=== PATIENT | female | born 1970 | race Caucasian/White ===

== ENCOUNTER 2018-07-30 17:29 | Outpatient (REF) | payer MEDICAID, SELFPAY ==
[2018-07-30 19:18] LABS: Bilirubin Negative (Negative); Blood Negative (Negative); Clarity Clear; Glucose Negative (Negative); Ketones Negative (Negative); Leukocyte Esterase Negative (Negative); Nitrite Negative (Negative); Specific Gravity <= 1.005 (1.005-1.025); Urobilinogen 0.2 EU/dL (Up TO 0.2)
== END 2018-07-30 17:49 ==
LOC: LBN 17:29
PROVIDERS: PCP Family Medicine; Visit Provider Obstetrics & Gynecology
DX: R30.0 Dysuria (principal)
CPT/HCPCS: 81003; 87086

== ENCOUNTER 2018-07-31 09:09 | Outpatient (CLI) | payer MEDICAID, SELFPAY ==
--- NOTE | 2018-07-31 14:45 | DI.US_ITS ---
SYMPTOMS/DIAGNOSIS: PELVIC PAIN, LEFT GREATER THAN RIGHT, R10.2 PELVIC ULTRASOUND: Comparison is made with November,. Transabdominal and transvaginal exams were performed. The uterus measures 5.8 x 2.8 x 3.7 cm. The endometrial stripe measures 2 mm in thickness. The ovaries are normal in size and appearance. There is no evidence of cyst, mass or torsion. There is no free fluid or hydronephrosis. IMPRESSION: Negative pelvic ultrasound.
[2018-07-31 14:53] LABS: Absolute Basophil Count 0.03 k/cumm (0.0-0.2); Absolute Eosinophil Count 0.16 k/cumm (0.0-0.7); Absolute Lymphocyte Count 2.07 k/cumm (1.2-3.4); Absolute Monocyte Count 0.68 k/cumm (0.11-0.7); Absolute Neutrophil Count 2.87 k/cumm (1.2-6.7); Basophils % 0.5; Eosinophils % 2.8; HGB 14.3 g/dL (12.0-15.5); Lymphocytes % 35.6; Mean Corp. HGB Concentration 32.5 g/dL (32.0-36.0); Mean Corpuscular Hemoglobin 31.1 pg (27.0-33.0); Mean Corpuscular Volume 95.7 fL (80-95); Mean Platelet Volume 10.5 fL (8.0-11.0); Monocytes % 11.7; Neutrophils % 49.4; Platelet Count 179 x1000/uL (130-400); RBC Distribution Width 12.3 % (11.7-14.6); White Blood Cell Count 5.81 k/cumm (4.4-10.8)
[2018-07-31 16:25] LABS: ALT 22 U/L (12-78); AST 26 U/L (15-37); Albumin 3.8 g/dL (3.4-5.0); Alkaline Phosphatase 42 U/L (46-116); Amylase 73 U/L (25-115); Bilirubin, Direct 0.21 mg/dL (0.00-0.20); Bilirubin, Total 0.9 mg/dL (0.2-1.0); Lipase 424 U/L (73-393); Total Protein 7.1 g/dL (6.4-8.2)
== END 2018-07-31 09:29 ==
PROVIDERS: PCP Family Medicine; Visit Provider Obstetrics & Gynecology
DX: R10.2 Pelvic and perineal pain (principal); R10.9 Unspecified abdominal pain
CPT/HCPCS: 36415; 80076; 83690; 76830; 76856; 82150; 85025

== ENCOUNTER 2020-08-09 10:52 | Outpatient (CLI) | payer MEDICAID, SELFPAY ==
--- NOTE | 2020-08-09 08:57 | DI.RAD_ITS ---
EXAM: XR KNEE LT 3V AP,LAT,PUJA CLINICAL HISTORY: left knee pain. TECHNIQUE: 2D digital imaging was performed. COMPARISON: CR XR KNEE RT 3V AP,LAT,PUJA from 08/09/2020 FINDINGS: There is no evidence of fracture nor obvious left knee joint effusion. However, there is chondrocalc inosis in both the mediolateral compartments as well as small marginal osteophytes in the lateral com partment. In addition, there is a corticated lung to truly orientated density off the medial aspect of the joint which measures 12 millimeters by 5 millimeters. This may possibly related to the medial collateral ligament or posterior to this level, seen on the lateral view. There is no narrowing of the medial compartment nor osteophytes in the medial compartment. IMPRESSION: Chondrocalcinosis. Some degenerative changes described above. Medially located para-articular calci fication, as described above. DATA REPOSITORY: RADIATION DOSE DELIVERED:
--- NOTE | 2020-08-09 08:57 | DI.RAD_ITS ---
EXAM: XR KNEE RT 3V AP,LAT,PUJA CLINICAL HISTORY: right knee pain. TECHNIQUE: 2D digital imaging was performed. COMPARISON: No exams were available for comparison FINDINGS: There is no evidence of fracture but there is a joint effusion in the suprapatellar bursa evident. There is chondrocalcinosis in both the mediolateral compartments evident as well as in the patellofem oral compartment in this 49-year-old patient. There is no joint space narrowing nor prominent osteop hytes. No osseous lesions. IMPRESSION: Mild degenerative changes. Chondrocalcinosis. Joint effusion DATA REPOSITORY: RADIATION DOSE DELIVERED:
== END 2020-08-09 10:53 | disposition home or self-care (01) ==
LOC: DIORS 10:53
PROVIDERS: PCP Family Medicine; Referring Provider Family Medicine; Visit Provider Physician Assistant
DX: M11.262 Other chondrocalcinosis, left knee (principal); M11.261 Other chondrocalcinosis, right knee; M17.0 Bilateral primary osteoarthritis of knee; M25.461 Effusion, right knee
CPT/HCPCS: 73562

== ENCOUNTER 2020-09-24 03:05 | Outpatient (CLI) | payer MEDICAID, SELFPAY ==
--- NOTE | 2020-09-24 06:45 | DI.MRI_ITS ---
EXAM: MR LOWER JOINT LT WO CLINICAL HISTORY: PAIN, INSTABILITY,INTERNAL DERANGEMENT,CHONDROCALCINOSIS,M23.92,M11.262 TECHNIQUE: Multiplanar multisequence MRI was performed.. COMPARISON: CR XR KNEE LT 3V AP,LAT,PUJA from 08/09/2020 FINDINGS: MR examination of the knee was performed according to the usual protocol. There is a small significant knee joint effusion. No significant bony signal abnormality seen. Note is made of a small ossicle associated with the medial collateral ligament as seen on plain films . Medial tibiofemoral joint: The articular cartilage of the femur and tibia appears well maintained. T he meniscus and attachments appear intact. The medial collateral ligament appears intact. No patient educator omedial corner injury seen. Lateral tibiofemoral joint: The articular cartilage of the femur and tibia appears well maintained wi th minimal signal abnormality noted consistent with chondrocalcinosis.. The lateral meniscus shows m inimal contour irregularity of its free edge in the midbody region suggesting some fraying. No gross displaced lateral meniscal tear seen. The lateral collateral ligament complex and posterolateral co rner structures appear intact. Patellofemoral joint and extensor mechanism: The articular cartilage of the patellofemoral joint show s central and inferior deformity and signal abnormality consistent with grade 2 chondromalacia period . The superior and inferior patellar fat pads appear normal with no signal abnormality. The quadriceps tendon and patellar tendon appear intact with no evidence of a tear or significant elle ma. The medial and lateral retinacula appear intact. Cruciate ligaments: Cruciate ligaments and attachments appear normal with no evidence of a tear. Tibiofibular joint: No specific abnormality involving the tibiofibular joint. IMPRESSION: Degenerative articular cartilage changes of the patella centrally and inferiorly. Fraying of free edge of lateral meniscal body. No gross displaced meniscal tear. DATA REPOSITORY:
== END 2020-09-24 03:25 ==
PROVIDERS: PCP Family Medicine; Visit Provider Student in an Organized Health Care Education/Training Program
DX: M23.92 Unspecified internal derangement of left knee (principal); M11.262 Other chondrocalcinosis, left knee
CPT/HCPCS: 73721

== ENCOUNTER 2020-10-18 03:27 | Outpatient (CLI) | payer MEDICAID, SELFPAY ==
[2020-10-18 11:40] LABS: Source Nasal/Nares
[2020-10-18 18:17] LABS: COVID-19 PCR Negative (Negative)
== END 2020-10-18 03:28 | disposition home or self-care (01) ==
LOC: LBO 03:27
PROVIDERS: PCP Family Medicine; Visit Provider Student in an Organized Health Care Education/Training Program
DX: Z20.822 Contact with and (suspected) exposure to COVID-19 (principal)
CPT/HCPCS: 87635

== ENCOUNTER 2020-10-20 10:43 | Day surgery (SDC) | payer MEDICAID, SELFPAY ==
--- NOTE | 2020-10-18 15:45 | NUR.NOTE ---
Pt. stated she is taking Vitamin K, and has been for a long time due to abnormal PT/INR in past. This was not documented in patients chart. Informed Dr. Hand of this via Teams, and awaiting further instruction on pre-operative use of vitamin K prior to surgery.Nursing Note:
[2020-10-20] VITALS (9 sets, daily range): BP systolic 86–124; BP diastolic 56–72; PULSE 51–72; RESP 10–21; TEMP 36.4–36.6; O2SAT 95–100; BMI 22.6
[2020-10-20] MEDS: Celecoxib 200 MG CAP 400 MG PO (11:24)
[2020-10-20] MEDS: Acetaminophen 500 MG TAB 1000 MG PO (11:24)
[2020-10-20] MEDS: Lactated Ringers 1,000 ML 80 ML IV (11:24)
--- NOTE | 2020-10-20 11:36 | W.ANESPRE ---
General Info Date of Service Date Performed: 10/20/20 Height: 5 ft 8 in Weight: 67.6 kg Body Mass Index (BMI): 22.6 Surgical Procedure: Operation Date: 10/20/20 15:25 Proposed Procedures Side Surgeon p Knee Arthroscopy Left Scot Hand MD Meds Allergies and Home Medications Allergies Allergy/AdvReac Type Severity Reaction Status Date / Time Latex, Natural Rubber Allergy Intermediate WHEEZING, Unverified 10/20/20 11:03 RASH Home Medication Medication Instructions Recorded vit B complex 100 combo no.2 100 1 tab PO DAILY tab 07/30/18 mg tablet,extended release multivitamin 1 tab PO DAILY 08/16/18 Ca cmb no.1-vit [id number] 1 tab PO DAILY 10/18/20 Tumeric 500 mg PO DAILY 10/18/20 omega-3 fatty acids-vitamin E 1,000 cap PO DAILY 10/18/20 vitamin K2 45 mcg PO DAILY 10/18/20 acetaminophen 1,000 mg PO Q8H PRN PRN #90 cap 10/20/20 hydrocodone-acetaminophen 1 tab PO Q6H PRN #6 tab 10/20/20 ibuprofen 600 mg PO TID PRN #30 tab 10/20/20 magnesium 30 mg PO BID 10/20/20 Current Visit Medications: Current Medications Generic Name Dose Route Start Last Admin Trade Name Efrainq PRN Reason Stop Dose Admin Acetaminophen 1,000 mg 10/20/20 06:00 10/20/20 11:24 Acetaminophen 500 Mg Tab PO 10/20/20 16:00 1,000 mg PREOP ESTELA Administration Celecoxib 400 mg 10/20/20 06:00 10/20/20 11:24 Celecoxib 200 Mg Cap PO 10/20/20 16:00 400 mg PREOP ESTELA Administration Ringer's Solution 1,000 mls @ 80 mls/hr 10/20/20 06:00 10/20/20 11:24 IV 11/18/20 23:59 80 mls/hr INFUSION ESTELA Administration Cefazolin Sodium/Dextrose 2 gm in 50 mls @ 100 mls/hr 10/20/20 06:00 Ancef Duplex IVPB 11/18/20 23:59 PREOP ESTELA IV Miscellaneous Supplies 1 each 10/20/20 06:00 Iv Access IV 11/18/20 23:59 DIRECTED ESTELA Sodium Chloride 0 ml 10/20/20 06:00 Normal Saline Flush 10 Ml Syr IV 11/18/20 23:59 PRN PRN Sodium Chloride 0 ml 10/20/20 06:00 Normal Saline 10 Ml Vial IJ 11/18/20 23:59 DIRECTED PRN Sterile Water 0 ml 10/20/20 06:00 Water,Injection,Sterile 10 Ml Vial IJ 11/18/20 23:59 DIRECTED PRN PFSH Active Problems Active Problems: Problem Status Onset Code Tear of lateral meniscus of left knee S83.282A Chondrocalcinosis of right knee M11.261 Internal derangement of left knee M23.92 Chondrocalcinosis of left knee M11.262 Total urinary incontinence 12/10/13 N39.498 Encounter for routine gynecological examination 04/19/15 Z01.419 Medical History Medical History abnormal Pap MAYRA 11 with cryo therapy x 2 Paps NL since Asthma Patient states resolved Chlamydia trachomatis infection (Unknown) Chondrocalcinosis of left knee Depo-Medrol injection: 08/09/2020 Chondrocalcinosis of right knee Internal derangement of left knee Depo-Medrol injection: 08/09/2020 Irregular periods (12/10/13) Thyroid condition ? Total urinary incontinence (12/10/13) Surgical History Surgical History Cervical Procedure cryo x 2 for MAYRA 1-11 Reduction mammoplasty ? 1999 bilateral reductions Tobacco Smoking/Tobacco Use Status: Former Tobacco Use Alcohol Alcohol Intake: current Alcohol intake frequency: a few times a month Substance Use Substance use: Never Substance use type: does not use Prental History History 3 Para 3 Hx # Term Pregnancies 3 Multiple births Hx # Pregnancies Ectopic pregnancies AB induced Hx Number of Living Children AB spontaneous Vital Signs and Lab Results Vital Signs Most Recent Vital Signs in EMR: Most Recent Vital Signs Temp Pulse Resp BP Pulse Ox 36.5 C 72 17 124/72 96 10/20/20 10:57 10/20/20 10:57 10/20/20 10:57 10/20/20 10:57 10/20/20 10:57 Lab Results Blood Type / Crossmatch: No Data to Display Complete Blood Count: White Blood Count 5.81 k/cumm (4.4-10.8) 07/31/18 14:45 07/31/18 Red Blood Count 4.60 m/cumm (4.00-5.20) 07/31/18 14:45 07/31/18 Hemoglobin 14.3 g/dL (12.0-15.5) 07/31/18 14:45 07/31/18 Hematocrit 44.0 % (36.0-46.0) 07/31/18 14:45 07/31/18 Platelet Count 179 x1000/uL (130-400) 07/31/18 14:45 07/31/18 Complete Metabolic Panel: Sodium Level 141 mmol/L (136-145) 08/07/11 11:30 08/07/11 Potassium Level 3.7 mmol/L (3.5-5.1) 08/07/11 11:30 08/07/11 Chloride Level 106 mmol/L (98-107) 08/07/11 11:30 08/07/11 Carbon Dioxide Level 28.7 mmol/L (21.0-32.0) 08/07/11 11:30 08/07/11 Blood Urea Nitrogen 14 mg/dL (7-18) 08/07/11 11:30 08/07/11 Creatinine 0.7 mG/dL (0.6-1.0) 08/07/11 11:30 08/07/11 Magnesium Level 1.9 mg/dL (1.8-2.4) 08/07/11 11:30 08/07/11 Calcium Level 8.4 mg/dL (8.5-10.1) L 08/07/11 11:30 08/07/11 Albumin 3.8 g/dL (3.4-5.0) 07/31/18 14:45 07/31/18 Glucose Level 80 mg/dL (70-100) 01/27/13 07:20 01/27/13 C-Reactive Protein 0.07 mg/dL (0.0-0.3) 08/07/11 11:30 08/07/11 Liver Function Panel: Alanine Aminotransferase (ALT/SGPT) 22 U/L (12-78) 07/31/18 14:45 07/31/18 Aspartate Amino Transf (AST/SGOT) 26 U/L (15-37) 07/31/18 14:45 07/31/18 Coagulation Panel: INR International Normalized Ratio 1.1 (1.0-3.5) 08/07/11 11:30 08/07/11 Prothrombin Time 11.0 sec (9.3-11.1) 08/07/11 11:30 08/07/11 Activated Partial Thromboplast Time 26.3 sec (21.7-31.4) 08/07/11 11:30 08/07/11 Cardiac Panel: Troponin I < 0.04 ng/mL (0.00-0.06) 08/07/11 11:30 08/07/11 Arterial Blood Gas: No Data to Display Venous Blood Gas: No Data to Display Pancreas Panel: Amylase Level 73 U/L (25-115) 07/31/18 14:45 07/31/18 Lipase 424 U/L (73-393) H 07/31/18 14:45 07/31/18 Thyroid Panel: Thyroid Stimulating Hormone (TSH) 2.58 uIU/mL (0.36-3.74) 01/27/14 07:17 01/27/14 Infectious Disease: Coronavirus (COVID-19)(PCR) Negative (Negative) 10/18/20 11:25 10/18/20 Coronavirus 2019 Source Nasal/nares 10/18/20 11:25 10/18/20 Hepatitis B Surface Antigen Nonreactive 01/27/14 07:17 01/27/14 Hepatitis C Antibody Negative (Negative) 01/27/14 07:17 01/27/14 Syphilis Serology See comments (NR) 01/27/14 07:17 01/27/14 Neisseria gonorrhoeae DNA Probe See comments (()) 12/10/13 10:30 12/10/13 Blood Cultures: No Data to Display Toxicology Panel: No Data to Display Panel: No Data to Display Anesthesia Assessment and Plan Anesthesia History Personal History: No History of Anesthesia Complications Family History: No Family History of Anesthesia Complications Exercise Tolerance Exercise Tolerance: Metabolic Equivalents>4 Cardiac & Pulmonary Exam Cardiac Exam: Normal S1/S2 Heart Sounds Pulmonary Exam: Clear Bilateral Breath Sounds Airway Exam Known Difficult Airway: No ASA Classification ASA Score: ASA 2 NPO Status NPO Status: NPO Clears >2 hours, Solids >8 hours Status Status: Not Relevant due to Medical History Anesthesia Plan Anesthesia Technique: General Anesthesia Airway Planned: LMA Monitors Used: Standard Monitors
--- NOTE | 2020-10-20 11:55 | W.PM.DSUDISC ---
Discharge Plan Disposition Patient Disposition: HOME Condition: Good Discharge Details Reason For Visit: Left knee arthroscopy Attending Provider: Scot Hand Primary Care Provider: Mateus Herrera Home Meds and New Rx's Prescriptions: New acetaminophen 500 mg capsule 1,000 mg PO Q8H PRN PRNQty: 90 RF: 0 hydrocodone-acetaminophen 5-325 mg tablet 1 tab PO Q6H PRN (Reason: pain) Qty: 6 RF: 0 ibuprofen 600 mg tablet 600 mg PO TID PRN (Reason: pain) Qty: 30 RF: 0 Continued Balanced B-100 Complex 100 mg tablet extended release 1 tab PO DAILY RF: 0 multivitamin [Daily Multi-Vitamin] tablet 1 tab PO DAILY RF: 0 omega-3 fatty acids-vitamin E 1,000 mg Capsule 1,000 cap PO DAILY RF: 0 Ca cmb no.1-vit [id number]-B12 120-1,000-10 mg-unit-mg Tablet 1 tab PO DAILY RF: 0 vitamin K2 45 mcg Capsule 45 mcg PO DAILY RF: 0 Tumeric 500 mg PO DAILY RF: 0 magnesium 500 mg Tablet 30 mg PO BID RF: 0 Discontinued ibuprofen 200 MG tablet 1 tab PO PRN PRNRF: 0 Discharge Instructions Stand Alone Forms: [facility]throsc[facility] Referrals: Scot Hand MD [ [facility] STAFF PHYSICIAN] - Equipment/Supplies: Partial Weight Bearing Crutches Activity:: Activity as Tolerated Remove Dressings/Wound Care:: 72 hours Shower/Bathe:: 72 hours Diet:: As Tolerated Discharge Orders Discharge Orders: Discharge Order (Routine); Ordered 10/20/20 Ordered By: Addison Wiley DS: Diagnosis Discharge Diagnosis (1) Tear of lateral meniscus of left knee: Status: Acute
--- NOTE | 2020-10-20 13:38 | W.ANESPRE ---
General Info Date of Service Date Performed: 10/20/20 Height: 5 ft 8 in Weight: 67.6 kg Body Mass Index (BMI): 22.6 Surgical Procedure: Operation Date: 10/20/20 15:25 Proposed Procedures Side Surgeon p Knee Arthroscopy Left Scot Hand MD Meds Allergies and Home Medications Allergies Allergy/AdvReac Type Severity Reaction Status Date / Time Latex, Natural Rubber Allergy Intermediate WHEEZING, Unverified 10/20/20 11:03 RASH Home Medication Medication Instructions Recorded vit B complex 100 combo no.2 100 1 tab PO DAILY tab 07/30/18 mg tablet,extended release multivitamin 1 tab PO DAILY 08/16/18 Ca cmb no.1-vit [id number]-B12 1 tab PO DAILY 10/18/20 Tumeric 500 mg PO DAILY 10/18/20 omega-3 fatty acids-vitamin E 1,000 cap PO DAILY 10/18/20 vitamin K2 45 mcg PO DAILY 10/18/20 acetaminophen 1,000 mg PO Q8H PRN PRN #90 cap 10/20/20 hydrocodone-acetaminophen 1 tab PO Q6H PRN #6 tab 10/20/20 ibuprofen 600 mg PO TID PRN #30 tab 10/20/20 magnesium 30 mg PO BID 10/20/20 Current Visit Medications: Current Medications Generic Name Dose Route Start Last Admin Trade Name Freq PRN Reason Stop Dose Admin Acetaminophen 1,000 mg 10/20/20 06:00 10/20/20 11:24 Acetaminophen 500 Mg Tab PO 10/20/20 16:00 1,000 mg PREOP ESTELA Administration Acetaminophen 650 mg 10/20/20 11:53 Acetaminophen 325 Mg Tab PO Q4H PRN PRN Hydrocodone Bitart/Acetaminophen 0 tab 10/20/20 12:17 Hydrocodone 5/Acetaminophen 325 Tab PO Q3H PRN PRN Pain Celecoxib 400 mg 10/20/20 06:00 10/20/20 11:24 Celecoxib 200 Mg Cap PO 10/20/20 16:00 400 mg PREOP ESTELA Administration Ringer's Solution 1,000 mls @ 80 mls/hr 10/20/20 06:00 10/20/20 11:24 IV 11/18/20 23:59 80 mls/hr INFUSION ESTELA Administration Cefazolin Sodium/Dextrose 2 gm in 50 mls @ 100 mls/hr 10/20/20 06:00 Ancef Duplex IVPB 11/18/20 23:59 PREOP ESTELA IV Miscellaneous Supplies 1 each 10/20/20 06:00 Iv Access IV 11/18/20 23:59 DIRECTED ESTELA Sodium Chloride 0 ml 10/20/20 06:00 Normal Saline Flush 10 Ml Syr IV 11/18/20 23:59 PRN PRN Sodium Chloride 0 ml 10/20/20 06:00 Normal Saline 10 Ml Vial IJ 11/18/20 23:59 DIRECTED PRN Sterile Water 0 ml 10/20/20 06:00 Water,Injection,Sterile 10 Ml Vial IJ 11/18/20 23:59 DIRECTED PRN PFSH Active Problems Active Problems: Problem Status Onset Code Tear of lateral meniscus of left knee S83.282A Chondrocalcinosis of right knee M11.261 Internal derangement of left knee M23.92 Chondrocalcinosis of left knee M11.262 Total urinary incontinence 12/10/13 N39.498 Encounter for routine gynecological examination 04/19/15 Z01.419 Medical History Medical History abnormal Pap MAYRA 11 with cryo therapy x 2 Paps NL since Asthma Patient states resolved Chlamydia trachomatis infection (Unknown) Chondrocalcinosis of left knee Depo-Medrol injection: 08/09/2020 Chondrocalcinosis of right knee Internal derangement of left knee Depo-Medrol injection: 08/09/2020 Irregular periods (12/10/13) Thyroid condition ? Total urinary incontinence (12/10/13) Surgical History Surgical History Cervical Procedure cryo x 2 for MAYRA 1-11 Reduction mammoplasty ? 1999 bilateral reductions Tobacco Smoking/Tobacco Use Status: Former Tobacco Use Alcohol Alcohol Intake: current Alcohol intake frequency: a few times a month Substance Use Substance use: Never Substance use type: does not use Prental History History 3 Para 3 Hx # Term Pregnancies 3 Multiple births Hx # Pregnancies Ectopic pregnancies AB induced Hx Number of Living Children AB spontaneous Vital Signs and Lab Results Vital Signs Most Recent Vital Signs in EMR: Most Recent Vital Signs Temp Pulse Resp BP Pulse Ox 36.5 C 72 17 124/72 96 10/20/20 10:57 10/20/20 10:57 10/20/20 10:57 10/20/20 10:57 10/20/20 10:57 Lab Results Blood Type / Crossmatch: No Data to Display Complete Blood Count: White Blood Count 5.81 k/cumm (4.4-10.8) 07/31/18 14:45 07/31/18 Red Blood Count 4.60 m/cumm (4.00-5.20) 07/31/18 14:45 07/31/18 Hemoglobin 14.3 g/dL (12.0-15.5) 07/31/18 14:45 07/31/18 Hematocrit 44.0 % (36.0-46.0) 07/31/18 14:45 07/31/18 Platelet Count 179 x1000/uL (130-400) 07/31/18 14:45 07/31/18 Complete Metabolic Panel: Sodium Level 141 mmol/L (136-145) 08/07/11 11:30 08/07/11 Potassium Level 3.7 mmol/L (3.5-5.1) 08/07/11 11:30 08/07/11 Chloride Level 106 mmol/L (98-107) 08/07/11 11:30 08/07/11 Carbon Dioxide Level 28.7 mmol/L (21.0-32.0) 08/07/11 11:30 08/07/11 Blood Urea Nitrogen 14 mg/dL (7-18) 08/07/11 11:30 08/07/11 Creatinine 0.7 mG/dL (0.6-1.0) 08/07/11 11:30 08/07/11 Magnesium Level 1.9 mg/dL (1.8-2.4) 08/07/11 11:30 08/07/11 Calcium Level 8.4 mg/dL (8.5-10.1) L 08/07/11 11:30 08/07/11 Albumin 3.8 g/dL (3.4-5.0) 07/31/18 14:45 07/31/18 Glucose Level 80 mg/dL (70-100) 01/27/13 07:20 01/27/13 C-Reactive Protein 0.07 mg/dL (0.0-0.3) 08/07/11 11:30 08/07/11 Liver Function Panel: Alanine Aminotransferase (ALT/SGPT) 22 U/L (12-78) 07/31/18 14:45 07/31/18 Aspartate Amino Transf (AST/SGOT) 26 U/L (15-37) 07/31/18 14:45 07/31/18 Coagulation Panel: INR International Normalized Ratio 1.1 (1.0-3.5) 08/07/11 11:30 08/07/11 Prothrombin Time 11.0 sec (9.3-11.1) 08/07/11 11:30 08/07/11 Activated Partial Thromboplast Time 26.3 sec (21.7-31.4) 08/07/11 11:30 08/07/11 Cardiac Panel: Troponin I < 0.04 ng/mL (0.00-0.06) 08/07/11 11:30 08/07/11 Arterial Blood Gas: No Data to Display Venous Blood Gas: No Data to Display Pancreas Panel: Amylase Level 73 U/L (25-115) 07/31/18 14:45 07/31/18 Lipase 424 U/L (73-393) H 07/31/18 14:45 07/31/18 Thyroid Panel: Thyroid Stimulating Hormone (TSH) 2.58 uIU/mL (0.36-3.74) 01/27/14 07:17 01/27/14 Infectious Disease: Coronavirus (COVID-19)(PCR) Negative (Negative) 10/18/20 11:25 10/18/20 Coronavirus 2019 Source Nasal/nares 10/18/20 11:25 10/18/20 Hepatitis B Surface Antigen Nonreactive 01/27/14 07:17 01/27/14 Hepatitis C Antibody Negative (Negative) 01/27/14 07:17 01/27/14 Syphilis Serology See comments (NR) 01/27/14 07:17 01/27/14 Neisseria gonorrhoeae DNA Probe See comments (()) 12/10/13 10:30 12/10/13 Blood Cultures: No Data to Display Toxicology Panel: No Data to Display Panel: No Data to Display Anesthesia Assessment and Plan Anesthesia History Personal History: No History of Anesthesia Complications Family History: No Family History of Anesthesia Complications Exercise Tolerance Exercise Tolerance: Metabolic Equivalents>4 Pertinent Negatives Pertinent Negatives: No Symptoms of GERD, No Major Cardiovascular Symptoms or Complaints, No Major Pulmonary Symptoms or Complaints and No History of CVA/TIA Cardiac & Pulmonary Exam Cardiac Exam: Normal S1/S2 Heart Sounds Pulmonary Exam: Clear Bilateral Breath Sounds Airway Exam Known Difficult Airway: No Mallampati Class: 1 Mouth Opening: Normal (> 3cm) Thyromental Distance: Greater than 3 cm Neck Range of Motion: Full ROM Neck Circumference: Normal Teeth Condition: Normal Dentition Airway Comment:: *UPPER and LOWER Retainer ASA Classification ASA Score: ASA 2 ASA Emergency: No NPO Status NPO Status: NPO Clears >2 hours, Solids >8 hours Status Status: Not Relevant due to Medical History Anesthesia Plan Anesthesia Technique: General Anesthesia Airway Planned: LMA Monitors Used: Standard Monitors
[2020-10-20] MEDS: ceFAZolin 2 GM/50 ML BAG IVPB (14:30)
[2020-10-20] MEDS: Bupivacaine 0.25% Pres-Free 30 ML VIAL (15:15)
--- NOTE | 2020-10-20 16:49 | W.ANESPOSTOP ---
Postoperative Evaluation Date, Time and Location Date Performed: 10/20/20 Time Performed: 16:51 Patient Location: Day Surgery Unit Vital Signs Most Recent Imported Vital Signs: Most Recent Vital Signs Temp Pulse Resp BP Pulse Ox 36.6 C 51 L 21 94/62 L 100 10/20/20 16:36 10/20/20 16:36 10/20/20 16:36 10/20/20 16:36 10/20/20 16:36 Pain Score Most Recent Pain Score: Most Recent Pain Score Pain Level 8 10/20/20 16:36 Patient reports 8/10, however, refuses medication. She states it is tolerable and is like ...a hard walk at home.... Assessment Mental Status: Awake (Alert & Oriented to Patient Baseline) Airway and Respiratory Function: Patent airway with normal (patient baseline) respiratory exam Cardiovascular Function: Hemodynamically Stable Hydration Status: Adequately Hydrated Nausea & Vomiting: No Nausea or Vomiting Pain: Pt. Denies Any Pain Peripheral Nerve Block: Patient did not receive a nerve block
--- NOTE | 2020-10-20 18:04 | W.PM.OP ---
Date of service: 10/20/20 Time of Service: 15:05 Operative Note Operative Note DATE OF PROCEDURE: 10/20/20 PRE-OP DIAGNOSIS: Left Knee Lateral Meniscus Tear POST-OP DIAGNOSIS: same Left Knee Crystalline Arthropathy PROCEDURE: Left Knee Arthroscopic Partial Lateral Menisectomy SURGEON: Scot Hadn ANESTHESIA TYPE: General LMA/ETT Refer to Anesthesia Record ESTIMATED BLOOD LOSS: 0 PATHOLOGY: none sent TOURNIQUET TIME: 0 COMPLICATIONS: None Patient was transported to: PACU Patient's condition: stable Indications: I have seen Nel in clinic for symptoms of a meniscus tear. This was confirmed based on MRI and exam findings. Nonoperative measures were exhausted but disability and pain persisted. I discussed knee arthroscopy with meniscal intervention with the patient. I reviewed the risks of the procedure to include, but not limited to, bleeding, infection, pain, stiffness, damage to nerves or vessels, recurrence, blood clot. Despite these risks, the patient elected to proceed. Findings: A diagnostic arthroscopy was performed with the following findings: Suprapatellar Pouch: Mild inflammatory changes, Crystalline deposition within the knee Medial Compartment: No meniscal tear, Intact meniscal root, No significant chondromalacia or signs of arthritis, no loose bodies but crystalline deposition to the cartilage and meniscus Notch: ACL and PCL were intact Lateral Compartment: Complex lateral meniscus tear wit primary radial component just lateral of posterior root with minimal peripheral connection, Grade I chondromalacia but apparent poor quality with crystalline deposition, No loose bodies Patellofemoral Compartment: Grade I chondromalacia, No apparent patellar maltracking Procedure Description: Nel was greeted in the preoperative holding area where the correct side was identified and marked. The consent was reviewed with the patient and signed. The history and physical was updated. All questions were answered. Nel was taken back to the operating room. The patient was placed into the supine position on the operating room table. A nonsterile tourniquet was placed high onto the leg but not used. All bony prominences were well padded. Prophylactic antibiotics in the form of Cefazolin were administered. The left leg was then prepped with Chloraprep and draped in a standard fashion with stockinette and extremity drape. A timeout to confirm correct identity, side and site, procedure, allergies, anesthesia, and medical concerns was performed. The leg was placed into a pneumatic leg vallejo, SPIDER2. A standard lateral portal was made at the lateral border of the patella tendon in line with the inferior pole of the patella, soft spot. The skin and deep tissue was incised sharply and the blunt trochar was inserted atraumatically. A diagnostic arthroscopy was performed and the findings are listed above. The suprapatellar pouch had mild inflammatory changes. The patellofemoral articulation showed Grade I chondromalacia as well as good tracking. The lateral gutter had no loose bodies and the medial gutter had no loose bodies. The knee was brought into some valgus stress in extension to open the medial compartment. A medial portal was made, localized by a spinal needle. The portal was created with an #11 blade through skin and capsule under direct visualization avoiding any meniscal injury. A probe was then inserted into the medial compartment. The medial compartment was fully inspected. The chondral surface of the tibia showed no significant chondromalacia and the surface of the femur showed no significant chondromalacia. The medial meniscus had no meniscal tear. The notch was then inspected which showed an intact ACL and an intact PCL. The leg was then brought into a figure of 4 position. The lateral compartment was fully inspected with the arthroscope and a probe. The chondral surface of the lateral femur showed Grade I/II chondromalacia with crystalline deposits in the cartilage and the meniscal free edge. The chondral surface of the lateral tibia showed Grade I chondromalacia with crystalline deposits. The lateral meniscus had a complex tear just lateral to the root. There was a primary radial component which extended nearly completely through at this level. There were a few fibers peripherally attaching the stump to the remaining meniscus. There were also stable attachments to the capsule on either side of the popliteal hiatus which kept the meniscus stable on probing. Additionally, there was general fraying of the posterior lateral meniscus with significant deposits of crystalline material. There was some complex tearing involving the central 1/3 at the posterior horn. After evaluation, the meniscus was debrided down to a stable base using a series of biters and arthroscopic izzy. It was probed afterwards to confirm that the tear had been removed and the meniscus was stable. The arthroscope was brought back into the suprapatellar pouch and the leg was in full extension. The knee was thoroughly irrigated with the arthroscopic fluid on high flow and pressure. Inflow was stopped and excess fluid was removed. The wounds were closed with 4-0 Nylon. They were dressed with Xeroform, 4x4 gauze, ABD pad, Kerlix and an MARLEY wrap. A cryo-cuff was applied. The patient tolerated the procedure well and was returned to the Same Day Surgery area in a stable condition suffering no known complication.
== END 2020-10-20 17:29 | disposition home or self-care (01) ==
PROVIDERS: PCP Family Medicine; Visit Provider Student in an Organized Health Care Education/Training Program
PROC: (CPT 29870; principal; 2020-10-20 15:15)
DX: S83.282A Other tear of lateral meniscus, current injury, left knee, initial encounter (principal); W19.XXXA Unspecified fall, initial encounter; Y93.02 Activity, running
CPT/HCPCS: 29881; J0690; J1100; J1885; J2001; J2405; J2704

== ENCOUNTER 2021-03-04 16:57 | Outpatient (REF) | payer MEDICAID, SELFPAY ==
--- NOTE | 2021-03-04 14:30 | PAPFT_PTH ---
PATIENT: LuzSeptember LOC: [facility] U#:[id number] AGE/SX: 50/F ROOM: RE03/04/[address]: MELISSA Pierson : 1970 BED: DIS: 03/04/2021 SPEC #: [id number] RECD: 03/04/21 18:11 STATUS: TREVIN RERafa #: [id number] BAN: 03/04/21 14:[address]: Nancy Martinez [facility]PT[facility] Cytology RECD BY: Fara Pisano ENTERED: 03/04/21 18:12 SP TYPE: PAPFT OTHR DR: Mateus Herrera Tissues: 1 - CX/ENDOCX FOR PAP SMEARS Procedures: PAP THIN PREP/UVM Screening HPV DNA PROBE Comments: [id number]
== END 2021-03-04 16:58 | disposition home or self-care (01) ==
LOC: LBN 16:57
PROVIDERS: PCP Family Medicine; Visit Provider Nurse Practitioner Family
DX: Z12.4 Encounter for screening for malignant neoplasm of cervix (principal); Z01.419 Encounter for gynecological examination (general) (routine) without abnormal findings; Z11.51 Encounter for screening for human papillomavirus (HPV); B97.7 Papillomavirus as the cause of diseases classified elsewhere
CPT/HCPCS: 88142; 87624

== ENCOUNTER 2021-03-09 01:30 | Outpatient (CLI) | payer MEDICAID, SELFPAY ==
--- NOTE | 2021-03-09 11:30 | DI.MAMMO_ITS ---
Exam(s) MAMMO SCREENING EXAM: MAMMO SCREENING CLINICAL HISTORY: screening TECHNIQUE: Bilateral full field digital CC and MLO mammographic images were obtained with 3D tomosyn thesis and utilizing computer aided detection (CAD). COMPARISON: Available for comparison. FINDINGS: Masses/Architectural Distortion: None seen. Microcalcifications: No suspicious pleomorphic-type are seen. Skin Thickening/Nipple Retraction: None. IMPRESSION: 1. No significant interval change with no specific features of malignancy noted. 2. Unless there is more urgent need, screening mammography is recommended, as per [place] [employer] guidelines. BI-RADS Category 1 - Negative Breast Density - Category B - Scattered areas of fibroglandular density Breast density category C or D implies that the patient has dense breast tissue. Dense breast tissue is very common and is not abnormal but dense breast tissue can make it harder to find cancer on a ma mmogram. Also, dense breast tissue may increase their breast cancer risk. This information about the result of the mammogram report was provided to the patient to raise their awareness. Use this report when you speak with the patient about their risks for breast cancer, which includes their family hist ory. At that time, you may recommend for more screening tests (Ultrasound or MRI) as they might be us eful based on their risk. A negative radiographic report should not delay biopsy if a dominant or clinically suspicious mass is present. Up to ten percent of cancers are not identified on mammography. A negative report may reinforce clinical impression. Adenosis and dense breasts may obscure an underlying neoplasm. False positive reports average 6 to 10%. Patient will receive a letter notifying them of these results.
== END 2021-03-09 01:50 ==
PROVIDERS: PCP Family Medicine; Visit Provider Nurse Practitioner Family
DX: Z12.31 Encounter for screening mammogram for malignant neoplasm of breast (principal)
CPT/HCPCS: 77063; 77067

== ENCOUNTER 2022-04-03 15:48 | Outpatient (REF) | payer MEDICAID, SELFPAY ==
--- NOTE | 2022-04-03 15:00 | PAPFT_PTH ---
PATIENT: LuzSeptember LOC: [facility] U#:[id number] AGE/SX: 51/F ROOM: RE04/03/[address]: Mary Begum CNM : 1970 BED: DIS: 04/03/2022 SPEC #: [id number] RECD: 04/03/22 17:40 STATUS: TREVIN REQ #: [id number] BAN: 04/03/22 15:[address]: Mary Begum DEPT: [facility] Cytology RECD BY: Fara Pisano ENTERED: 04/03/22 17:40 SP TYPE: PAPFT OTHR DR: Mateus Herrera Tissues: 1 - CX/ENDOCX FOR PAP SMEARS Procedures: PAP THIN PREP/UVM Screening HPV DNA PROBE Comments: [id number] (HPV 16 & 18/45)
== END 2022-04-03 15:49 | disposition home or self-care (01) ==
LOC: LBN 15:48
PROVIDERS: PCP Family Medicine; Visit Provider Advanced Practice Midwife
DX: Z12.4 Encounter for screening for malignant neoplasm of cervix (principal); R87.610 Atypical squamous cells of undetermined significance on cytologic smear of cervix (ASC-US); R87.810 Cervical high risk human papillomavirus (HPV) DNA test positive
CPT/HCPCS: 88142; 87624

== ENCOUNTER 2022-04-26 10:39 | Outpatient (REF) | payer MEDICAID, SELFPAY ==
--- NOTE | 2022-04-26 10:10 | CER_PTH ---
PATIENT: LuzSeptember LOC: [facility] U#:[id number] AGE/SX: 51/F ROOM: RE04/26/[address]: Rhonda Murillo MD : 1970 BED: DIS: 04/26/2022 SPEC #: [id number] RECD: 04/26/22 12:43 STATUS: TREVIN REQ #: [id number] BAN: 04/26/22 10:[address]: Rhonda Murillo DEPT: Surgical Specimen RECD BY: Fara Pisano ENTERED: 04/26/22 12:43 SP TYPE: CER OTHR DR: Mateus Herrera Tissues: 1 - CERVICAL BIOPSY Procedures: GROSS AND MICRO LEVEL 4 Comments: [id number]
== END 2022-04-26 10:40 | disposition home or self-care (01) ==
LOC: LBN 10:39
PROVIDERS: PCP Family Medicine; Visit Provider Obstetrics & Gynecology
DX: N94.9 Unspecified condition associated with female genital organs and menstrual cycle (principal)
CPT/HCPCS: 88305; 87480; 87510; 87660

== ENCOUNTER → 2022-06-02 00:54 | Outpatient (CLI) | payer MEDICAID, SELFPAY ==
--- NOTE | 2022-06-02 06:30 | DI.MAMMO_ITS ---
Exam(s) MAMMO SCREENING EXAM: MAMMO SCREENING CLINICAL HISTORY: screening.Z12.39 TECHNIQUE: Bilateral full field digital CC and MLO mammographic images were obtained with 3D tomosyn thesis and utilizing computer aided detection (CAD). COMPARISON: Available for comparison. FINDINGS: Masses/Architectural Distortion: None seen. Microcalcifications: No suspicious pleomorphic-type are seen. Skin Thickening/Nipple Retraction: None. IMPRESSION: 1. No significant interval change with no specific features of malignancy noted. 2. Unless there is more urgent need, screening mammography is recommended, as per [place] [employer] guidelines. BI-RADS Category 1 - Negative Breast Density - Category B - Scattered areas of fibroglandular density Breast density category C or D implies that the patient has dense breast tissue. Dense breast tissue is very common and is not abnormal but dense breast tissue can make it harder to find cancer on a ma mmogram. Also, dense breast tissue may increase their breast cancer risk. This information about the result of the mammogram report was provided to the patient to raise their awareness. Use this report when you speak with the patient about their risks for breast cancer, which includes their family hist ory. At that time, you may recommend for more screening tests (Ultrasound or MRI) as they might be us eful based on their risk. A negative radiographic report should not delay biopsy if a dominant or clinically suspicious mass is present. Up to ten percent of cancers are not identified on mammography. A negative report may reinforce clinical impression. Adenosis and dense breasts may obscure an underlying neoplasm. False positive reports average 6 to 10%. Patient will receive a letter notifying them of these results.
== END ==
PROVIDERS: PCP Family Medicine; Visit Provider Advanced Practice Midwife
DX: Z12.31 Encounter for screening mammogram for malignant neoplasm of breast (principal)
CPT/HCPCS: 77063; 77067

== ENCOUNTER 2023-05-04 16:56 | Outpatient (REF) | payer MEDICAID, SELFPAY ==
--- NOTE | 2023-05-04 15:00 | PAPFT_PTH ---
PATIENT: LuzSeptember LOC: [facility] U#:[id number] AGE/SX: 52/F ROOM: RE05/04/[address]: Mary Begum CNM : 1970 BED: DIS: 05/04/2023 SPEC #: [id number] RECD: 05/04/23 17:45 STATUS: TREVIN REQ #: [id number] BAN: 05/04/23 15:[address]: Mary Begum DEPT: [facility] Cytology RECD BY: Fara Pisano ENTERED: 05/04/23 17:46 SP TYPE: PAPFT OTHR DR: Mateus Herrera Tissues: 1 - CX/ENDOCX FOR PAP SMEARS Procedures: PAP THIN PREP/UVM Screening HPV DNA PROBE Comments: [id number] (HPV 16 & 18/45) (CHLAMYDIA/GC)
[2023-05-07 14:48] LABS: Chlamydia Result Negative (Negative); GC Result Negative (Negative)
== END 2023-05-04 16:57 | disposition home or self-care (01) ==
LOC: LBN 16:56
PROVIDERS: PCP Family Medicine; Visit Provider Advanced Practice Midwife
DX: Z78.0 Asymptomatic menopausal state (principal); Z12.4 Encounter for screening for malignant neoplasm of cervix
CPT/HCPCS: 87491; 87591; 88142; 87480; 87510; 87624; 87660

== ENCOUNTER 2023-06-05 04:45 | Outpatient (CLI) | payer MEDICAID, SELFPAY ==
[2023-06-05 08:41] LABS: Absolute Basophil Count 0.04 10^3/uL (0.0-0.2); Absolute Eosinophil Count 0.36 10^3/uL (0.0-0.7); Absolute Lymphocyte Count 1.28 10^3/uL (1.2-3.4); Absolute Monocyte Count 0.53 10^3/uL (0.1-0.8); Absolute Neutrophil Count 3.23 10^3/uL (1.2-6.7); Basophils % 0.7; Eosinophils % 6.6; HCT 42.6 % (36.0-46.0); HGB 14.2 g/dL (11.2-15.7); Lymphocytes % 23.5; MCH 31.1 pg (27.0-33.0); MCHC 33.3 % (32.0-36.0); MCV 93 fL (80-95); MPV 9.9 fL (8.0-11.0); Monocytes % 9.7; Neutrophils % 59.5; Platelet Count 212 10^3/uL (130-400); RBC 4.56 10^6/uL (3.93-5.22); RDW-SD 41.5 fL; WBC 5.44 10^3/uL (4.4-10.8)
[2023-06-05 09:21] LABS: ALT 20 U/L (14-59); AST 19 U/L (15-37); Albumin 3.8 g/dL (3.4-5.0); Alkaline Phosphatase 39 U/L (46-116); Anion Gap 7.4 mmol/L (3-11); BUN 25 mg/dL (7-18); Bilirubin, Total 0.5 mg/dL (0.2-1.0); CO2 29.6 mmol/L (21.0-32.0); CREATININE 0.7 mg/dL (0.55-1.02); Calcium 9.3 mg/dL (8.5-10.1); Calculated LDL 145 mg/dL (<100); Chloride 102 mmol/L (98-107); Cholesterol 227 mg/dL (<200); Estimated GFR 103.35 (mL/min/1.73m2); Glucose 110 mg/dL (74-106); HDL Cholesterol 74 mg/dL (40-60); Potassium 4.1 mmol/L (3.5-5.1); Sodium 139 mmol/L (136-145); TSH (W/Ref FT4) 1.71 uIU/mL (0.36-3.74); Total Protein 7.1 g/dL (6.4-8.2); Triglyceride 40 mg/dL (<150)
[2023-06-05 10:00] LABS: Vitamin D 25 Total 48.7 ng/mL (30-100)
== END 2023-06-05 04:46 | disposition home or self-care (01) ==
LOC: LBO 04:46
PROVIDERS: PCP Family Medicine; Visit Provider Advanced Practice Midwife
DX: Z13.220 Encounter for screening for lipoid disorders (principal); Z78.0 Asymptomatic menopausal state
CPT/HCPCS: 36415; 80053; 80061; 82306; 84443; 85025

== ENCOUNTER → 2023-06-21 00:12 | Outpatient (CLI) | payer MEDICAID, SELFPAY ==
--- NOTE | 2023-06-21 12:00 | DI.MAMMO_ITS ---
Exam(s) MAMMO SCREENING EXAM: MAMMO SCREENING CLINICAL HISTORY: screening TECHNIQUE: Mammograms were interpreted according to the usual protocol including computer analysis w [employer] CAD system, tomosynthesis and C-view imaging. COMPARISON: 2013 through 2021 FINDINGS: The breasts are composed of scattered fibroglandular densities, Breast Density category B. No suspicious masses or suspicious microcalcifications are seen. Mild scarring related to breast red uction surgery. No skin thickening or abnormal axillary lymph nodes are seen. There has been no significant change from prior exams. IMPRESSION: BI-RADS Category 1, Negative mammogram Yearly screening mammography is recommended. Breast Density - Category B, scattered fibroglandular densities. A negative radiographic report should not delay biopsy if a dominant or clinically suspicious mass is present. Up to ten percent of cancers are not identified on mammography. A negative report may reinforce clinical impression. Adenosis and dense breasts may obscure an underlying neoplasm. False positive reports average 6 to 10%. Patient will receive a letter notifying them of these results.
== END ==
PROVIDERS: PCP Family Medicine; Visit Provider Advanced Practice Midwife
DX: Z12.31 Encounter for screening mammogram for malignant neoplasm of breast (principal)
CPT/HCPCS: 77063; 77067

== ENCOUNTER 2025-03-16 07:25 | Outpatient (CLI) | payer MEDICAID, SELFPAY ==
--- NOTE | 2025-03-16 | DI.MAMMO_ITS ---
Exam(s) MAMMO SCREENING EXAM: MAMMO SCREENING CLINICAL HISTORY: SCREENING, TECHNIQUE: Mammograms were interpreted according to the usual protocol including computer analysis with CAD system, tomosynthesis and C-view imaging. COMPARISON: 2014 through 2022 FINDINGS: The breasts are composed of scattered fibroglandular densities, Breast Density category B. No suspicious masses or suspicious microcalcifications are seen. No skin thickening or abnormal axillary lymph nodes are seen. There has been no significant change from prior exams. IMPRESSION: BI-RADS Category 1, Negative mammogram Yearly screening mammography is recommended. Breast Density - Category B - There are scattered areas of fibroglandular density. Breast density Category C or D implies that the patient has dense breast tissue. Dense breast tissue can make it harder to find cancer on a mammogram. Dense breast tissue is also associated with an increased risk of breast cancer. This information about the result of the mammogram report was provided to the patient to raise their awareness. Use this report when you speak with the patient about their risks for breast cancer, which includes their family history. At that time, you may recommend additional screening tests (Ultrasound or MRI) as these tests may add significant information. A negative radiographic report should not delay biopsy if a dominant or clinically suspicious mass is present. Up to ten percent of cancers are not identified on mammography. A negative report may reinforce clinical impression. Adenosis and dense breasts may obscure an underlying neoplasm. False positive reports average 6 to 10%. Patient will receive a letter notifying them of these results.
== END 2025-03-16 07:45 ==
PROVIDERS: PCP Family Medicine; Visit Provider Family Medicine
DX: Z12.31 Encounter for screening mammogram for malignant neoplasm of breast (principal); R92.323 Mammographic fibroglandular density, bilateral breasts
CPT/HCPCS: 77063; 77067